=== PATIENT | male | born 1990 | race Hispanic/Latino ===

== ENCOUNTER 2021-11-24 17:19 | Emergency (ER) | payer OTHER ==
[~2021-11-24] VITALS: Ht 170.2 cm; Wt 90.7 kg
== END 2021-11-24 19:47 | disposition home or self-care (01) ==
LOC: FSED 17:55
DX: R07.89 Other chest pain (principal)
CPT/HCPCS: 71046; 80053; 82553; 84484; 85025; 93005; 99283